=== PATIENT | male | born 1960 | race Hispanic/Latino ===

== ENCOUNTER 2020-02-28 09:25 | Inpatient (IN) | payer SELFPAY ==
[~2020-02-28] VITALS: Ht 172.7 cm; Wt 65.8 kg
[2020-02-28] MEDS ORDERED: CEFTRIAXONE SOD 1 GM/NS 50 ML 50 ML IV ONE (10:00)
[2020-02-28 10:04] LABS: BASOPHILS % 0.5 % (0.0-1.0); EOSINOPHILS % 0.5 % (0.0-6.0); HEMATOCRIT 43.1 % (38.2-49.6); HEMOGLOBIN 14.9 g/dL (14.0-18.0); LYMPHOCYTES # (AUTO) 1.1 (1.0-3.2); LYMPHOCYTES % 17.1 % (18.0-39.1); MEAN CORPUSCULAR HEMOGLOBIN 30.2 pg (28-32); MEAN CORPUSCULAR HGB CONC 34.6 g/dL (31-35); MEAN CORPUSCULAR VOLUME 87.4 fL (81-99); MONOCYTES # (AUTO) 0.7 (0.2-0.8); MONOCYTES % 11.8 % (4.4-11.3); NEUTROPHILS # (AUTO) 4.3 (2.1-6.9); NEUTROPHILS % 69.5 % (38.7-80.0); PLATELET COUNT 195 x10e3/uL (140-360); RED BLOOD COUNT 4.93 x10e6/uL (4.3-5.7); RED CELL DISTRIBUTION WIDTH 11.9 % (11.7-14.4)
[2020-02-28] MEDS ORDERED: AZITHROMYCIN 500MG/NS 250 ML 250 ML IV ONE (10:30)
[2020-02-28 10:46] LABS: ALANINE AMINOTRANSFERASE 42 IU/L (0-55); ALBUMIN 3.2 g/dL (3.5-5.0); ALBUMIN/GLOBULIN RATIO 0.6 (0.8-2.0); ALKALINE PHOSPHATASE 101 IU/L (40-150); ANION GAP 18.1 mmol/L (8-16); BLOOD UREA NITROGEN 8 mg/dL (7-26); BUN/CREATININE RATIO 11 (6-25); CALCIUM 9.1 mg/dL (8.4-10.2); CARBON DIOXIDE 22 mmol/L (22-29); CHLORIDE 96 mmol/L (98-107); CREATINE KINASE 21 IU/L (30-200); CREATININE, SERUM 0.73 mg/dL (0.72-1.25); EST GLOMERULAR FILTRATION RATE > 60 ML/MIN (60-); GLUCOSE 224 mg/dL (74-118); POTASSIUM 3.1 mmol/L (3.5-5.1); SODIUM 133 mmol/L (136-145)
--- NOTE | 2020-02-28 10:50 | NUR ---
COVID SWAB DONE
--- NOTE | 2020-02-28 10:59 | Emergency Department Note ---
History of Present Illnes History of Present Illness Chief Complaint: COVID PUI History of Present Illness This is a 59 year old male arrives to the ED with complaints of cough, fever and shortness of breath Chief Complaint Comment STATES HE FELT FEVERISH AT HOME BUT HAS NOT CHECKED HIS OWN TEMP TOOK TYLENOL YESTERDAY BUT NOT TODAY C/O DIFFICULTY BREATHING DENIES MUSCLES ACHES/CHILLS DENIES SORE THROAT/PERSON C/O N/V STATES HE HAD 1 DAY OF DIARRHEA STATES HE HAS LACK OF APPETITE LAST MEAL 3 DAYS AGO . Historian: Patient Arrival Mode: Car Severity: moderate Onset quality: gradual Duration (how long): day(s) Timing of current episode: intermittent Progression: worsening Chronicity: new Past Medical/Family History Physician Review I have reviewed the patient's past medical and family history. Any updates have been documented here. Past Medical History Recent Fever: Yes Clinical Suspicion of Infectio: Yes New/Unexplained Change in Ment: No Past Medical History: Diabetes Past Surgical History: None Social History Smoking Cessation: Unknown if ever smoked Counseling Performed: No Alcohol Use: Occasional Any Illegal Drug Use: No TB Exposure/Symptoms: No Physically hurt or threatened: No Other Last Tetanus: UTD Last Flu: N Last Pneumovax: N Review of Systems Review of Systems Constitutional: Reports as per HPI, Reports chills, Reports fever EENTM: Reports no symptoms Cardiovascular: Reports no symptoms Respiratory: Reports as per HPI, Reports cough, Reports pain on inspiration Gastrointestinal: Reports no symptoms Genitourinary: Reports no symptoms Musculoskeletal: Reports no symptoms Integumentary: Reports no symptoms Neurological: Reports no symptoms Psychological: Reports no symptoms Endocrine: Reports no symptoms Hematological/Lymphatic: Reports no symptoms Physical Exam Related Data Allergies: Coded Allergies: No Known Allergies (Unverified , 02/28/20) Triage Vital Signs Vital Signs Date Time Temp Pulse Resp B/P (MAP) Pulse Ox O2 Delivery O2 Flow Rate FiO2 02/28/20 09:32 97.9 80 24 101/76 92 Vital signs reviewed: Yes Physical Exam CONSTITUTIONAL Constitutional: Present well-developed, Present ill appearing HENT HENT: Present normocephalic, Present atraumatic, Present oropharynx clear/moist, Present nose normal HENT L/R: Present left ext ear normal, Present right ext ear normal EYES Eyes: Reports PERRL, Reports conjunctivae normal NECK Neck: Present ROM normal PULMONARY Pulmonary: Present effort normal, Present respiratory distress CARDIOVASCULAR Cardiovascular: Present regular rhythm, Present heart sounds normal, Present capillary refill normal, Present normal rate GASTROINTESTINAL Abdominal: Present soft, Present nontender, Present bowel sounds normal GENITOURINARY Genitourinary: Present exam deferred SKIN Skin: Present warm, Present dry MUSCULOSKELETAL Musculoskeletal: Present ROM normal NEUROLOGICAL Neurological: Present alert, Present oriented x 3, Present no gross motor or sensory deficits PSYCHOLOGICAL Psychological: Present mood/affect normal, Present judgement normal Results Laboratory Result Diagram: 02/28/20 0948 Laboratory Laboratory Tests Test 02/28/20 10:17 02/28/20 09:48 White Blood Count 6.20 x10e3/uL (4.8-10.8) Red Blood Count 4.93 x10e6/uL (4.3-5.7) Hemoglobin 14.9 g/dL (14.0-18.0) Hematocrit 43.1 % (38.2-49.6) Mean Corpuscular Volume 87.4 fL (81-99) Mean Corpuscular Hemoglobin 30.2 pg (28-32) Mean Corpuscular Hemoglobin Concent 34.6 g/dL (31-35) Red Cell Distribution Width 11.9 % (11.7-14.4) Platelet Count 195 x10e3/uL (140-360) Neutrophils (%) (Auto) 69.5 % (38.7-80.0) Lymphocytes (%) (Auto) 17.1 % (18.0-39.1) Monocytes (%) (Auto) 11.8 % (4.4-11.3) Eosinophils (%) (Auto) 0.5 % (0.0-6.0) Basophils (%) (Auto) 0.5 % (0.0-1.0) Neutrophils # (Auto) 4.3 (2.1-6.9) Lymphocytes # (Auto) 1.1 (1.0-3.2) Monocytes # (Auto) 0.7 (0.2-0.8) Eosinophils # (Auto) 0.0 (0.0-0.4) Basophils # (Auto) 0.0 (0.0-0.1) Absolute Immature Granulocyte (auto 0.04 x10e3/uL (0-0.1) Lactic Acid Level 3.3 mmol/L (0.5-2.0) Lab results reviewed: Yes Laboratory comments Laboratory Tests Test 02/28/20 10:17 02/28/20 09:50 02/28/20 09:48 Urine Color [place] (YELLOW) Urine Clarity Sl cloudy (CLEAR) Urine pH 6 (5 - 7) Urine Specific [place] 1.025 (1.010-1.025) Urine Protein 2+ (NEGATIVE) Urine Glucose (UA) Negative (NEGATIVE) Urine Ketones Trace (NEGATIVE) Urine Blood Negative (NEGATIVE) Urine Nitrite Negative (NEGATIVE) Urine Bilirubin Moderate (NEGATIVE) Urine Urobilinogen 4 mg/dL (0.2 - 1) Urine Leukocyte Esterase Negative (NEGATIVE) Urine RBC 0-5 /HPF (0-5) Urine WBC 0-5 /HPF (0-5) Urine Epithelial Cells Few /LPF (NONE) Urine Bacteria Moderate /HPF (NONE) White Blood Count 6.20 x10e3/uL (4.8-10.8) Red Blood Count 4.93 x10e6/uL (4.3-5.7) Hemoglobin 14.9 g/dL (14.0-18.0) Hematocrit 43.1 % (38.2-49.6) Mean Corpuscular Volume 87.4 fL (81-99) Mean Corpuscular Hemoglobin 30.2 pg (28-32) Mean Corpuscular Hemoglobin Concent 34.6 g/dL (31-35) Red Cell Distribution Width 11.9 % (11.7-14.4) Platelet Count 195 x10e3/uL (140-360) Neutrophils (%) (Auto) 69.5 % (38.7-80.0) Lymphocytes (%) (Auto) 17.1 % (18.0-39.1) Monocytes (%) (Auto) 11.8 % (4.4-11.3) Eosinophils (%) (Auto) 0.5 % (0.0-6.0) Basophils (%) (Auto) 0.5 % (0.0-1.0) Neutrophils # (Auto) 4.3 (2.1-6.9) Lymphocytes # (Auto) 1.1 (1.0-3.2) Monocytes # (Auto) 0.7 (0.2-0.8) Eosinophils # (Auto) 0.0 (0.0-0.4) Basophils # (Auto) 0.0 (0.0-0.1) Absolute Immature Granulocyte (auto 0.04 x10e3/uL (0-0.1) Sodium Level 133 mmol/L (136-145) Potassium Level 3.1 mmol/L (3.5-5.1) Chloride Level 96 mmol/L (98-107) Carbon Dioxide Level 22 mmol/L (22-29) Anion Gap 18.1 mmol/L (8-16) Blood Urea Nitrogen 8 mg/dL (7-26) Creatinine 0.73 mg/dL (0.72-1.25) Estimat Glomerular Filtration Rate > 60 ML/MIN (60-) BUN/Creatinine Ratio 11 (6-25) Glucose Level 224 mg/dL (74-118) Lactic Acid Level 3.3 mmol/L (0.5-2.0) Calcium Level 9.1 mg/dL (8.4-10.2) Total Bilirubin 0.9 mg/dL (0.2-1.2) Aspartate Amino Transf (AST/SGOT) 69 IU/L (5-34) Alanine Aminotransferase (ALT/SGPT) 42 IU/L (0-55) Alkaline Phosphatase 101 IU/L (40-150) Creatine Kinase 21 IU/L (30-200) Creatine Kinase MB 0.20 ng/mL (0-5.0) Troponin I 0.006 ng/mL (0-0.300) Total Protein 8.4 g/dL (6.5-8.1) Albumin 3.2 g/dL (3.5-5.0) Globulin 5.2 g/dL (2.3-3.5) Albumin/Globulin Ratio 0.6 (0.8-2.0) Imaging Imaging results reviewed: Yes Impressions IMPRESSION: Apparent airspace opacities in both lower lung zones may represent pneumonia. Procedures 12 Lead ECG Interpretation ECG Interpretation : ECG: ECG 1 Special Needs Caregiver: Interpreted by ED physician Prior ECG tracings: reviewed Rhythm: sinus rhythm QRS axis: normal ST segments normal: Yes T waves normal: Yes Clinical Impression: normal ECG Critical Care Time Total Critical Care Time (min): 35 Critical care time exclusive o: separately billable procedures Critcal care necessary due to: respiratory failure (patient arrived hypoxic acute respiratory failure, required immediate intervention supplemental O2) Assessment & Plan Medical Decision Making MDM 59 yo M arrived to the ED with complaints of cough shortness of breath, no be t achypneic and hypoxic on arrival to the ER. High suspicion for covid 19. Patient admitted, ceftriaxone and Zithromax given the ED, pulmonary infectious disease consulted. Assessment & Plan Final Impression: (1) Acute respiratory failure (2) Acute respiratory disease due to COVID-19 virus Depart Disposition: ADMITTED Last Vital Signs Date Time Temp Pulse Resp B/P (MAP) Pulse Ox O2 Delivery O2 Flow Rate FiO2 02/28/20 10:43 73 32 132/80 100 02/28/20 09:32 97.9 Medications in the ED Ceftriaxone Sodium 50 ml @ 100 mls/hr ONCE ONCE IV Last administered on 02/28/20at 10:23; Admin Dose 100 MLS/HR; Start 02/28/20 at 10:00; Stop 02/28/20 at 10:29; Status DC Azithromycin 250 ml @ 200 mls/hr ONCE ONCE IV ; Start 02/28/20 at 10:30; Stop 02/28/20 at 11:44 RENO GRAHAM, Feb 28, 2020 10:59
--- NOTE | 2020-02-28 11:29 | NUR ---
3 rd call to pharmacy for azithomax iv.
--- NOTE | 2020-02-28 11:33 | Diagnostic Imaging Report ---
TECHNIQUE: Frontal view of the chest. INDICATION: 59-year-old man with fever. COMPARISON: None. FINDINGS: LINES/TUBES: None. LUNGS: The lungs are well inflated. Apparent patchy airspace opacities in both lower lung zones. PLEURA: No pneumothorax or significant pleural effusion. HEART AND MEDIASTINUM: The cardiomediastinal silhouette is within normal limits. SOFT TISSUES AND BONES: Unremarkable. IMPRESSION: Apparent airspace opacities in both lower lung zones may represent pneumonia. Signed by: Renny Zelaya MD on 02/28/2020 11:29 AM
--- NOTE | 2020-02-28 11:40 | NUR ---
called lab to see where urine result is and why not checked in yet?
[2020-02-28 11:57] LABS: CLARITY,URINE SL CLOUDY (CLEAR); COLOR,URINE ORANGE (YELLOW)
[2020-02-28 11:58] LABS: BILIRUBIN,URINE MODERATE (NEGATIVE); KETONES,URINE TRACE (NEGATIVE); LEUKOCYTE ESTERASE ,URINE NEGATIVE (NEGATIVE); NITRITE,URINE NEGATIVE (NEGATIVE); PROTEIN,URINE DIPSTICK 2+ (NEGATIVE); URINE UROBILINOGEN 4 mg/dL (0.2 - 1)
[2020-02-28 12:18] LABS: BACTERIA,URINE MODERATE /HPF; EPITHELIAL CELLS,URINE FEW /LPF; RBC,URINE 0-5 /HPF (0-5); WBC,URINE (MAN) 0-5 /HPF (0-5)
--- NOTE | 2020-02-28 15:00 | NUR ---
CALLED FOR TELE BOX
[2020-02-28] MEDS ORDERED: ONDANSETRON HCL INJ 2MG/ML 2ML 2 MG/ML VIAL IV PRN (16:15)
[2020-02-28] MEDS ORDERED: SOD CHL 0.45%/POT CHL 20MEQ 1,000 ML IV ONE (16:30)
[2020-02-28] MEDS ORDERED: POTASSIUM CHLORIDE 20 MEQ TAB CR PO NR ×2 (16:30→19:00)
[2020-02-28 17:39] VITALS: BP 132/83
[2020-02-28] MEDS: ENOXAPARIN SOD INJ 40 MG/0.4 ML SYR SC SCH (18:10)
[2020-02-28] MEDS: ASCORBIC ACID 500 MG TAB PO SCH (18:10)
--- NOTE | 2020-02-28 18:30 | NUR ---
Patient arrived from ER at 1745. Patient is AOx3. Patient is on 2L NC with oxygen saturations at 97%. Patient was able to give me a somewhat history, does not understand all Argentine nor is he able to communicate all Argentine. 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 Patient has a patent, c/d/i IV in the left forearm with fluids running at 100 ml/hr. Patient was seen by Dr. Cody Reis upon arrival and he did order some new medications, which were given. No other orders at this time.
--- NOTE | 2020-02-28 19:51 | Consultation ---
DATE OF CONSULTATION: Pulmonary Critical Care Consultation CHIEF COMPLAINT: Fever, abdominal pain, and decreased appetite. HISTORY OF PRESENT ILLNESS: The patient is a 59-year-old man. He denies any prior cardiopulmonary history. He notes feeling ill for the past 3 days. He has some cough and some fever. He also notes some abdominal pain and decreased appetite. He says he vomits sometimes after he eats. PAST SURGICAL HISTORY: Noncontributory. PAST MEDICAL HISTORY: 1. No prior history of diabetes. 2. No prior history of respiratory problems. SOCIAL HISTORY: The patient has never been a smoker or drinker. FAMILY HISTORY: Family history is noncontributory. REVIEW OF SYSTEMS: He has some fevers. He has no headache. He has some cough. He reports some mild dyspnea. There is no chest pain. He has some abdominal pain. There is some vomiting after eating. He has no diarrhea. He has no leg edema. PHYSICAL EXAMINATION: VITAL SIGNS: The blood pressure is 119/78, saturation is 100%, and his respiratory rate is 26. HEENT: Shows no facial swelling or erythema. CARDIAC: Reveals regular rate and rhythm. Normal S1 and S2. There are no murmurs or rubs. LUNGS: Auscultation of lungs reveals clear breath sounds bilaterally. There is no wheezing. ABDOMEN: Soft and nontender. There is no rebound or guarding. EXTREMITIES: Shows no leg edema or calf tenderness. There is no cyanosis or clubbing. SKIN: Shows no rashes. NEUROLOGICAL: Shows no focal abnormalities. LABORATORY DATA: Lactic acid is 3.3 and the BUN to creatinine ratio is 8 to 0.73. The sodium is 133 and the potassium is 3.1. AST is 69 and the albumin is 3.2. RADIOGRAPHIC DATA: Chest x-ray shows bilateral airspace opacities. IMPRESSION: 1. Viral pneumonia and COVID-19 infection. 2. Hypokalemia. 3. Dehydration. PLAN: 1. Judicious use of IV fluids. 2. Replace potassium. 3. Azithromycin and Rocephin. 4. Oxygen. 5. Tylenol. Cliff Reis MD [facility]/ELL /[id number]
[2020-02-28 20:00] VITALS: BP 124/87
--- NOTE | 2020-02-28 20:41 | Consultation ---
DATE OF CONSULTATION: HISTORY OF PRESENT ILLNESS: A 59-year-old [place] male, comes into the emergency room with shortness of breath and cough. The patient has been feeling feverish, not feeling well, started for one day short of breath, body aches, comes in to emergency room, had one day also of diarrhea, not feeling well, not eating well, comes into the emergency room. The patient is being seen in the emergency room since COVID-19 test has been ordered. PAST MEDICAL HISTORY: Denies. PAST SURGICAL HISTORY: Denies. ALLERGIES: NKA. SOCIAL HISTORY: There is no smoking, drug abuse, or alcohol abuse. LABORATORY DATA: White count 6.2, hemoglobin 14.9. His COVID-19 is pending. Sodium 133, potassium 3.1, and creatinine 0.73. Lactic acid 3.3 and glucose 224. PAST MEDICAL HISTORY: Diabetes mellitus. MEDICATIONS: The patient is currently in the ER. IMAGING: Chest x-ray was done showed apparent air opacity in both lower zone. PHYSICAL EXAMINATION: GENERAL: He is currently alert and oriented. VITAL SIGNS: Stable, afebrile. Temperature 97.9, heart rate 80, respirations 24, and O2 saturation 92. HEENT: Normocephalic. NECK: Supple. CHEST: Free crackles bilateral. COR: S1-S2. No murmurs. ABDOMEN: Soft. Bowel sounds present. No tenderness. EXTREMITIES: No edema. IMPRESSION: 1. Concerned about coronavirus disease-19. 2. Atypical pneumonia. 3. Diabetes mellitus. Agree with Rocephin, agree with azithromycin. If PCR positive, we will start Lovenox. We will also put him on O2 as needed. Gentle hydration as needed. Recheck CBC. Recheck Chem panel. Diabetic control. Accu-Chek. We will follow. MD ERWIN Banegas/[facility]L /[id number]
[2020-02-28 21:00] VITALS: BP 124/87
[2020-02-29] VITALS (8 sets, daily range): BP systolic 104–135; BP diastolic 68–94
[2020-02-29] MEDS: ZOLPIDEM TARTRATE 5 MG TAB PO PRN ×2 (00:47→23:00)
[2020-02-29] MEDS: ACETAMINOPHEN 325 MG TAB PO PRN ×2 (00:47→15:49)
[2020-02-29 05:07] LABS: BASOPHILS % 0.4 % (0.0-1.0); EOSINOPHILS % 0.6 % (0.0-6.0); HEMOGLOBIN 13.6 g/dL (14.0-18.0); LYMPHOCYTES # (AUTO) 1.5 (1.0-3.2); LYMPHOCYTES % 20.6 % (18.0-39.1); MEAN CORPUSCULAR HEMOGLOBIN 29.7 pg (28-32); MEAN CORPUSCULAR VOLUME 87.3 fL (81-99); MONOCYTES # (AUTO) 0.9 (0.2-0.8); MONOCYTES % 12.7 % (4.4-11.3); NEUTROPHILS # (AUTO) 4.6 (2.1-6.9); NEUTROPHILS % 65.1 % (38.7-80.0); PLATELET COUNT 210 x10e3/uL (140-360); RED BLOOD COUNT 4.58 x10e6/uL (4.3-5.7); RED CELL DISTRIBUTION WIDTH 11.9 % (11.7-14.4)
[2020-02-29 05:35] LABS: MAGNESIUM 1.6 MG/DL (1.3-2.1); PHOSPHORUS 3.1 MG/DL (2.3-4.7)
[2020-02-29 05:45] LABS: THYROID STIMULATING HORMONE 2.338 uIU/mL (0.350-4.940)
[2020-02-29 06:00] LABS: ALANINE AMINOTRANSFERASE 38 IU/L (0-55); ALBUMIN 2.6 g/dL (3.5-5.0); ALBUMIN/GLOBULIN RATIO 0.5 (0.8-2.0); ALKALINE PHOSPHATASE 80 IU/L (40-150); BLOOD UREA NITROGEN 9 mg/dL (7-26); BUN/CREATININE RATIO 15 (6-25); CALCIUM 8.3 mg/dL (8.4-10.2); CARBON DIOXIDE 21 mmol/L (22-29); CHLORIDE 100 mmol/L (98-107); CREATININE, SERUM 0.62 mg/dL (0.72-1.25); EST GLOMERULAR FILTRATION RATE > 60 ML/MIN (60-); GLUCOSE 122 mg/dL (74-118); SODIUM 134 mmol/L (136-145)
[2020-02-29 08:26] LABS: EOSINOPHILS % (MANUAL) 1 % (0-7); LYMPHOCYTES % (MANUAL) 20 % (19-48); MONOCYTES % (MANUAL) 7 % (3.4-9.0); NEUTROPHILS % (MANUAL) 72 % (40-74); PLATELET ESTIMATE ADEQUATE; PLATELET MORPHOLOGY COMMENT NORMAL; RBC MORPHOLOGY COMMENT NORMAL
[2020-02-29] MEDS: ZINC SULFATE 220 MG CAP PO SCH (08:41)
[2020-02-29] MEDS: ASCORBIC ACID 500 MG TAB PO SCH ×2 (08:41→15:49)
--- NOTE | 2020-02-29 08:43 | NUR ---
GAVE PACKET OF INFORMATION WITH COMMUNITY [employer] FOR ASSISTANCE WITH LOW TO NO INCOME TO PATIENT. RESOURCES THAT PATIENT MAY BE ABLE TO FOLLOW UP UPON DISCHARGE. PT EDUCATED ON EACH RESOURCE AND UNDERSTANDING HOW TO FOLLOW UP TO SEE IF QUALIFIED FOR EACH RESOURCE.
[2020-02-29] MEDS ORDERED: METFORMIN HCL1000 MG PO (09:23)
[2020-02-29] MEDS ORDERED: MAGNESIUM SULFATE 2GM/50ML 50 ML IV ONE (09:30)
[2020-02-29] MEDS ORDERED: GUAIFENESIN/CODEINE 10 ML CUP PO PRN (09:30)
[2020-02-29] MEDS: CEFTRIAXONE SOD 2 GM/NS 100 ML 100 ML IV SCH (15:49)
[2020-02-29] MEDS: ENOXAPARIN SOD INJ 40 MG/0.4 ML SYR SC SCH (15:49)
[2020-02-29] MEDS ORDERED: SODIUM CHLORIDE 0.9% 1000ML 1,000 ML IV ONE (17:00)
[2020-02-29] MEDS: FAMOTIDINE 20 MG/2 ML VIAL IV SCH (17:28)
--- NOTE | 2020-02-29 18:16 | Progress Note ---
DATE: SUBJECTIVE: The patient still complains of some cough and some fevers. He has mild headache. PHYSICAL EXAMINATION: VITAL SIGNS: Blood pressure is 135/81 and saturation is 93% on 1 L. The temperature is 100.3. HEENT: Shows no facial swelling or erythema. CARDIAC: Reveals regular rate and rhythm with normal S1 and S2. LUNGS: Auscultation of lungs reveals clear breath sounds bilaterally. There is no wheezing. ABDOMEN: Soft and nontender. There is no rebound or guarding. EXTREMITIES: Shows no leg edema or calf tenderness. There is no cyanosis or clubbing. SKIN: Shows no rashes. LABORATORY DATA: CBC is within normal limits. BUN to creatinine ratio is normal. IMPRESSION: 1. Viral pneumonia and COVID-19 infection. 2. Hypokalemia. 3. Dehydration. PLAN: 1. Judicious use of IV fluids. 2. Azithromycin and Rocephin. 3. Cough suppressant. 4. Oxygen. Cliff Reis MD [facility] /[id number]
--- NOTE | 2020-02-29 19:36 | Progress Note ---
DATE: 02/29/2020 SUBJECTIVE: The patient continues to have cough, occasional chills. Mild abdominal pain. Decreased appetite, shortness of breath, mild dyspnea, phlegm, mild headache. OBJECTIVE: VITAL SIGNS: Temperature 98.3, heart rate 69, respirations 18, and oxygen saturation 92%. GENERAL: Supine in bed. Awake, alert. LUNGS: Clear with diminished bases. Oxygen at 1 L/minute via nasal cannula this morning, however, the patient states tubing hurts his ears and he removed it. Respirations are even and nonlabored on room air. HEENT: EOMI. NECK: Supple. CARDIOVASCULAR: Regular rate and rhythm. No murmur. ABDOMEN: Bowel sounds positive. Soft, mildly tender to gentle palpation. EXTREMITIES: No pitting edema. No clubbing, cyanosis, or marked swelling. NEUROLOGICAL: GCS 15. Nonfocal. LABORATORY DATA: WBC 7.09, hemoglobin 13.6, hematocrit 40, and platelets 210. Sodium 134, potassium 4.0, chloride 100, CO2 of 21, anion gap 17, BUN 9, creatinine 0.62, estimated GFR greater than 60, glucose 122. Hemoglobin A1c 6.8%. Calcium 8.3, phosphorus 3.1, magnesium 1.6, total bilirubin 1, AST 56, ALT 38, alkaline phosphatase 80, total protein 7.5, albumin 2.6. TSH 2.338. No growth from blood cultures. Preliminary urine culture shows re-intubation required. No new Radiology studies. ASSESSMENT AND PLAN: 1. Viral community-acquired pneumonia due to COVID-19. Continue with p.r.n. Tylenol, Lovenox, azithromycin, and Rocephin was added today by Dr. Carrillo. Continue oxygen p.r.n., however, currently the patient has good oxygen saturation without oxygen. Encourage p.o. fluids. Dr. Reis saw and evaluated the patient while I was in the room. We will order IV fluids. 2. Controlled type 2 diabetes mellitus. Yesterday's glucose elevated, but today serum glucose 122 and hemoglobin A1c is less than 7%, is 6.8%. Continue to monitor fingerstick blood glucose levels. 3. Acute hypomagnesemia. Magnesium level 1.6. We will order 2 g of magnesium sulfate. 4. Dehydration. Encourage p.o. fluids. Continue IV fluids. 5. Mild acute hyponatremia. Sodium level 134. Give normal saline as IV fluids. 6. Mild transaminitis with AST 56, improved from yesterday. 7. Prophylaxis. Pepcid and Lovenox. Dictated by Jaun Menezes, REAL ESTATE ASSISTANT Saran Schmitz MD [facility] /[id number]
--- NOTE | 2020-02-29 20:17 | Progress Note ---
DATE: 02/29/2020 SUBJECTIVE: Mr. Omalley is feeling better. He is not on any oxygen. He is still running fever. PHYSICAL EXAMINATION: GENERAL: He is currently alert and oriented, does not seem acute distress. VITAL SIGNS: Stable, currently afebrile. HEENT: He is not icteric. NECK: Supple. CHEST: Clear. IMAGING: His chest x-ray showed opacities. IMPRESSION: Pneumonia. Continue with Rocephin. Continue azithromycin. Continue Lovenox as ordered. Probably can discharge home tomorrow if he continued to improve. Continue oxygen as needed and we will follow. MD ERWIN Banegas/ANN MARIE /[id number]
--- NOTE | 2020-02-29 21:32 | History and Physical ---
CONSULTING PHYSICIANS: 1. Dr. Cliff Reis with Pulmonology. 2. Dr. Alesia Carrillo with Infectious Disease. No PCP listed. CHIEF COMPLAINT: Cough and fever. HISTORY OF PRESENT ILLNESS: The patient is a 59-year-old male who has been ill for about the last three days. He denies having any known sick contacts. However, he came into the emergency department with fever, some shortness of breath, cough with phlegm, mild dyspnea, abdominal pain, poor appetite. He was tested for COVID-19, which came back positive. He denies any recent travel. PAST MEDICAL HISTORY: Type 2 diabetes mellitus. PAST SURGICAL HISTORY: None. FAMILY HISTORY: None. SOCIAL HISTORY: Denies tobacco, alcohol, or illicit drugs. ALLERGIES: NO KNOWN ALLERGIES. REVIEW OF SYSTEMS: A 14-point review of systems completed. He is a known diabetic. He has no complaints of headache, diarrhea, or difficulty urinating. He has shortness of breath, cough, phlegm, mild dyspnea, abdominal pain, poor appetite, vomiting after eating. PHYSICAL EXAMINATION: VITAL SIGNS: Temperature 101.1, which is T-max, heart rate 81, blood pressure 132/83, respirations 18, and oxygen saturation 97%. Height 5 feet 8 inches, weight 150 pounds, BMI 22.8. GENERAL: The patient is lying supine in bed. LUNGS: Generally clear with diminished bases. Oxygen at 1 L via nasal cannula. HEENT: EOMI. NECK: Supple. CARDIOVASCULAR: Regular rate and rhythm. No murmur. ABDOMEN: Bowel sounds positive. Soft, tender to gentle palpation. EXTREMITIES: Without pitting edema. No clubbing, cyanosis, or marked swelling. No sign or symptom of DVT. NEUROLOGIC: GCS 15. Nonfocal. LABORATORY DATA: Sodium 133, potassium 3.1, chloride 96, CO2 of 22, BUN 8, creatinine 0.73, glucose 224, estimated GFR greater than 60. Calcium 9.1, AST 69, ALT 42, alkaline phosphatase 101. Creatine kinase 21, CK-MB 0.2, troponin I 0.006. Total protein 8.4, albumin 3.2. Urinalysis shows orange urine, slightly cloudy, 2+ protein, trace amount of ketones, moderate amount of bilirubin, negative for leukocyte esterase, negative for nitrite, moderate amount of urine bacteria. 02/27 coronavirus PCR detected. Blood cultures x2 showed no growth after 24 hours. Urine culture collected. Awaiting preliminary results. RADIOLOGY: Chest x-ray was done showing airspace opacities in both lower lung zones that may represent pneumonia. ASSESSMENT AND PLAN: 1. Viral community-acquired pneumonia due to COVID-19. Continue oxygen and wean as tolerated. Azithromycin/Rocephin, Lovenox, Tylenol. Encourage IV fluids as needed. 2. Uncontrolled type 2 diabetes mellitus with hyperglycemia, serum glucose 224. Monitor fingerstick blood glucose. The patient takes metformin at home and refuses insulin. 3. Acute hypokalemia. Potassium level 3.1, repleted by Dr. Reis. 4. Dehydration. Continue IV fluids as needed. 5. Mild acute hyponatremia. Sodium level 133. We will use normal saline with 20 mEq potassium chloride, IV fluids. 6. Transaminitis with AST of 69. Monitor LFTs. 7. Prophylaxis Lovenox, Pepcid. H and P time spent 60 minutes. Billing code [id number]. Dictated by Jaun Menezes NP MD JJ GusmanP/[facility] /[id number]
[2020-02-29] MEDS: GUAIFENESIN/CODEINE 10 ML CUP PO PRN (23:00)
[2020-03-01 05:45] LABS: BASOPHILS % 0.5 % (0.0-1.0); EOSINOPHILS # (AUTO) 0.1 (0.0-0.4); HEMATOCRIT 42.3 % (38.2-49.6); HEMOGLOBIN 14.6 g/dL (14.0-18.0); LYMPHOCYTES # (AUTO) 1.3 (1.0-3.2); LYMPHOCYTES % 16.3 % (18.0-39.1); MEAN CORPUSCULAR HEMOGLOBIN 30.8 pg (28-32); MEAN CORPUSCULAR HGB CONC 34.5 g/dL (31-35); MEAN CORPUSCULAR VOLUME 89.2 fL (81-99); MONOCYTES # (AUTO) 1.1 (0.2-0.8); MONOCYTES % 14.2 % (4.4-11.3); NEUTROPHILS # (AUTO) 5.2 (2.1-6.9); NEUTROPHILS % 67.5 % (38.7-80.0); PLATELET COUNT 212 x10e3/uL (140-360); RED BLOOD COUNT 4.74 x10e6/uL (4.3-5.7); RED CELL DISTRIBUTION WIDTH 11.7 % (11.7-14.4)
[2020-03-01 06:00] LABS: ALANINE AMINOTRANSFERASE 29 IU/L (0-55); ALBUMIN 2.4 g/dL (3.5-5.0); ALBUMIN/GLOBULIN RATIO 0.5 (0.8-2.0); ALKALINE PHOSPHATASE 75 IU/L (40-150); ANION GAP 16.7 mmol/L (8-16); BLOOD UREA NITROGEN 8 mg/dL (7-26); BUN/CREATININE RATIO 14 (6-25); CALCIUM 8.6 mg/dL (8.4-10.2); CARBON DIOXIDE 20 mmol/L (22-29); CHLORIDE 100 mmol/L (98-107); CREATININE, SERUM 0.57 mg/dL (0.72-1.25); EST GLOMERULAR FILTRATION RATE > 60 ML/MIN (60-); GLUCOSE 94 mg/dL (74-118); MAGNESIUM 1.8 MG/DL (1.3-2.1); POTASSIUM 3.7 mmol/L (3.5-5.1); SODIUM 133 mmol/L (136-145)
--- NOTE | 2020-03-01 07:00 | NUR ---
Received report from off going night nurse. Patient in stable condition, no s/s of distress noted. Telemetry applied. Bed in lowest position and locked. Call light within reach.
[2020-03-01 08:28] VITALS: BP 112/70
[2020-03-01] MEDS: ASCORBIC ACID 500 MG TAB PO SCH ×2 (09:26→16:36)
[2020-03-01] MEDS: FAMOTIDINE 20 MG/2 ML VIAL IV SCH ×2 (09:26→16:36)
[2020-03-01] MEDS: ZINC SULFATE 220 MG CAP PO SCH (09:26)
[2020-03-01] MEDS: AZITHROMYCIN 500MG/NS 250 ML 250 ML IV SCH (11:07)
[2020-03-01] MEDS: GUAIFENESIN/CODEINE 10 ML CUP PO PRN (11:08)
--- NOTE | 2020-03-01 11:49 | Progress Note ---
DATE: SUBJECTIVE: The patient is seen and evaluated. Available labs and notes reviewed. Discussed with Dr. Carrillo. Discussed with staff. Please refer to chart for more information. The patient is seen with the nurse in the room. REVIEW OF SYSTEMS: The patient has cough, shortness of breath, weak. He says that he has a good appetite, but it seems like he ate about 40% of his breakfast. He cannot eat on one sitting. He needs to take a breath to breathe while he is eating. No diarrhea. No edema. Weak, but he states that he is okay overall. PHYSICAL EXAMINATION: VITAL SIGNS: Temperature of 100.3 with a max of 102.6 yesterday at 4 o'clock in the afternoon, pulse is 77, respirations 16, and blood pressure 132/80. GENERAL: Alert and oriented, seems weak, seems to be slightly short of breath, but no acute distress, on O2 nasal cannula. The patient is on 2 to 3 L of oxygen through nasal cannula. CV: S1 and S2. CHEST: Coarse bilateral. Decreased breath sounds. ABDOMEN: Soft. No distention. No tenderness. HEENT: Moist. No pallor. No JVD. EXTREMITIES: Moves all. No significant edema. MEDICATIONS: The patient is on from ID point of view, vitamin C, zinc sulfate, Rocephin, and Lovenox 40 mg subcutaneous daily. LABORATORY STUDIES: White count of 7.65, hemoglobin 14.6, and platelet 212. Sodium 133, potassium 3.7, and creatinine 0.57. Serology; coronavirus PCR is positive on 02/28/2020. MICROBIOLOGY: Blood culture negative 24 hours on 02/28/2020. Urine culture 02/28/2020, showed lactobacillus and diphtheroids. IMAGING: Chest x-ray 02/28/2020, showed apparent airspace opacities in both lower lung zones, may represent pneumonia. ASSESSMENT AND PLAN: 1. Positive COVID-19 on 02/28/2020. 2. Bilateral pneumonia. 3. Cough. 4. Fever. 5. The patient remains on vitamin C, zinc sulfate, Rocephin, and Lovenox. We will add Zithromax. Monitor the patient's oxygen requirement and shortness of breath. Monitor the patient's cough. Monitor the patient clinically. Discussed with Dr. Carrillo. Please refer to chart for more information. MD KYLEE Banegas /[id number]
[2020-03-01 11:52] VITALS: BP 116/73
[2020-03-01] MEDS ORDERED: SODIUM CHLORIDE 0.9% 1000ML 1,000 ML IV ONE (12:45)
[2020-03-01] MEDS ORDERED: ALBUTEROL SULFATE HFA 8GM INHALATION AEROSOL INH PRN (12:45)
[2020-03-01] MEDS ORDERED: BENZONATATE 100 MG CAP PO PRN (13:00)
--- NOTE | 2020-03-01 13:45 | Progress Note ---
DATE: Pulmonary Critical Care Progress Note SUBJECTIVE: The patient still complains of fatigue. He has lack of energy. He still has some fever. He complains of some vomiting after eating. He also complains of cough. PHYSICAL EXAMINATION: VITAL SIGNS: The blood pressure is 116/73, saturation is 91%, pulse is 78. HEENT: No facial swelling or erythema. CARDIAC: Regular rate and rhythm with normal S1, S2. LUNGS: Auscultation of lungs reveals decreased breath sounds at the bases. There is no wheezing. ABDOMEN: Soft, nontender. There is no rebound or guarding. EXTREMITIES: No leg edema or calf tenderness. There is no cyanosis or clubbing. SKIN: No rashes. NEUROLOGICAL: No focal abnormalities. LABORATORY DATA: White blood cell count is 7.65 and hemoglobin is 14.6. The platelet count is 212. BUN to creatinine ratio is 8 to 0.57 and the albumin is 2.4. The sodium is 133 and CO2 is 20. IMPRESSION: 1. Viral pneumonia and coronavirus disease-19 infection. 2. Viral gastroenteritis. 3. Diabetes. 4. Hyponatremia. PLAN: 1. Repeat chest x-ray. 2. Additional IV fluids x1 L. 3. Continue cough suppressants. 4. Albuterol inhaler as needed. Cliff Reis MD [facility] /[id number]
[2020-03-01] MEDS: CEFTRIAXONE SOD 2 GM/NS 100 ML 100 ML IV SCH (14:16)
--- NOTE | 2020-03-01 14:37 | Diagnostic Imaging Report ---
EXAMINATION: CHEST SINGLE (PORTABLE) INDICATION: Cough COMPARISON: Chest radiograph 02/28/2020 FINDINGS: LINES/TUBES:None LUNGS:The lungs are moderately inflated. Unchanged bilateral multifocal airspace opacities. PLEURA:No pleural effusion or pneumothorax. MEDIASTINUM:The cardiomediastinal silhouette appears unchanged in size and shape. BONES/SOFT TISSUES:No acute osseous injury. ABDOMEN:No free air under the diaphragm. IMPRESSION: No significant interval change. Signed by: Wolf Bernardo MD on 03/01/2020 2:34 PM
[2020-03-01 15:55] VITALS: BP 134/78
[2020-03-01] MEDS: ENOXAPARIN SOD INJ 40 MG/0.4 ML SYR SC SCH (16:36)
[2020-03-01] MEDS: METFORMIN HCL 500 MG TAB PO SCH (18:27)
[2020-03-01 20:00] VITALS: BP 134/82
[2020-03-01 21:00] VITALS: BP 134/82
[2020-03-02 04:00] VITALS: BP 109/74
[2020-03-02 05:40] LABS: BASOPHILS % 0.5 % (0.0-1.0); EOSINOPHILS # (AUTO) 0.2 (0.0-0.4); HEMATOCRIT 38.9 % (38.2-49.6); HEMOGLOBIN 13.4 g/dL (14.0-18.0); LYMPHOCYTES # (AUTO) 1.1 (1.0-3.2); LYMPHOCYTES % 13.4 % (18.0-39.1); MEAN CORPUSCULAR HEMOGLOBIN 29.8 pg (28-32); MEAN CORPUSCULAR HGB CONC 34.4 g/dL (31-35); MEAN CORPUSCULAR VOLUME 86.6 fL (81-99); MONOCYTES % 11.8 % (4.4-11.3); NEUTROPHILS # (AUTO) 5.7 (2.1-6.9); NEUTROPHILS % 70.8 % (38.7-80.0); PLATELET COUNT 285 x10e3/uL (140-360); RED BLOOD COUNT 4.49 x10e6/uL (4.3-5.7); RED CELL DISTRIBUTION WIDTH 11.8 % (11.7-14.4)
[2020-03-02 05:55] LABS: ALANINE AMINOTRANSFERASE 27 IU/L (0-55); ALBUMIN 2.1 g/dL (3.5-5.0); ALBUMIN/GLOBULIN RATIO 0.4 (0.8-2.0); ALKALINE PHOSPHATASE 65 IU/L (40-150); ANION GAP 12.2 mmol/L (8-16); BLOOD UREA NITROGEN 7 mg/dL (7-26); BUN/CREATININE RATIO 14 (6-25); CALCIUM 8.3 mg/dL (8.4-10.2); CARBON DIOXIDE 23 mmol/L (22-29); CHLORIDE 102 mmol/L (98-107); EST GLOMERULAR FILTRATION RATE > 60 ML/MIN (60-); GLUCOSE 108 mg/dL (74-118); POTASSIUM 3.2 mmol/L (3.5-5.1); SODIUM 134 mmol/L (136-145)
[2020-03-02] MEDS ORDERED: ASCORBIC ACID500 MG PO (08:13)
[2020-03-02] MEDS ORDERED: ZINC SULFATE220 M1 PO (08:13)
[2020-03-02] MEDS ORDERED: Guaifenesin/Codeine PO (08:13)
[2020-03-02] MEDS ORDERED: VENTOLIN HFA18 GM INH (08:13)
[2020-03-02] MEDS ORDERED: POTASSIUM CHLORIDE 20 MEQ TAB CR PO ONE (08:30)
[2020-03-02] MEDS: METFORMIN HCL 500 MG TAB PO SCH ×2 (08:44→17:00)
[2020-03-02] MEDS: ZINC SULFATE 220 MG CAP PO SCH (08:44)
[2020-03-02] MEDS: ASCORBIC ACID 500 MG TAB PO SCH ×2 (08:44→17:00)
[2020-03-02] MEDS: FAMOTIDINE 20 MG/2 ML VIAL IV SCH ×2 (08:44→17:00)
[2020-03-02 10:41] VITALS: BP 109/74
[2020-03-02] MEDS: AZITHROMYCIN 500MG/NS 250 ML 250 ML IV SCH (11:22)
[2020-03-02 11:31] VITALS: BP 115/72
[2020-03-02] MEDS: CEFTRIAXONE SOD 2 GM/NS 100 ML 100 ML IV SCH (15:15)
[2020-03-02] MEDS ORDERED: ONDANSETRON HCL 4 MG ORAL DISINTEGRATING TAB PO PRN (15:15)
--- NOTE | 2020-03-02 15:30 | NUR ---
PT DISCHARGE PAPERWORK COMPLETE WITH PATIENT. PT GIVEN PRESCRIPTIONS AND CLEAR ON INSTRUCTIONS FOR ALL MEDS. PT VERBALIZED UNDERSTANDING OF DISCHARGE INSTRUCTIONS AND FOLLOW UP APPTS NEEDED. IV ACCESS REMOVED- BLEEDING CONTROLLED & DRESSING APPLIED. TELEMETRY BOX REMOVED FROM PATIENT, CLEANSED AND RETURNED. PT WAITING FOR TO ARRIVE WITH CLOTHES TO WEAR HOME. MATEO.
--- NOTE | 2020-03-02 16:09 | Progress Note ---
DATE: SUBJECTIVE: Mr. Omalley is feeling much better. He is still having cough. PHYSICAL EXAMINATION: GENERAL: He is currently alert, oriented. VITAL SIGNS: Stable, currently afebrile. HEENT: He is not icteric. NECK: Supple. CHEST: Clear. HEART: S1-S2. No murmur. ABDOMEN: Soft. Bowel sounds present. No tenderness. EXTREMITIES: No edema. SKIN: No rash. IMPRESSION AND PLAN: 1. Coronavirus disease-19 viral pneumonia. 2. Diabetes. 3. Hypertension. 4. Stable from Infectious Disease point of view, can be discharged home with albuterol and prednisone. Follow up as an outpatient in 2 weeks. Home quarantine for 2 weeks. MD ERWIN Banegas/[facility] /[id number]
[2020-03-02] MEDS: ENOXAPARIN SOD INJ 40 MG/0.4 ML SYR SC SCH (17:00)
--- NOTE | 2020-03-02 17:47 | NUR ---
patient unable to get to answer phone to come pick him up. she is not answering my calls either. [email or web address].
--- NOTE | 2020-03-02 18:25 | Progress Note ---
DATE: SUBJECTIVE: The patient is still on nasal cannula. He feels better. He is not complaining of nausea, vomiting. PHYSICAL EXAMINATION: VITAL SIGNS: The patient is afebrile. The blood pressure is 115/72, saturation is 91% on room air. The pulse is 75. CARDIAC: Reveals a regular rate and rhythm with normal S1 and S2. There are no murmurs or rubs heard. LUNGS: Auscultation of lungs reveals clear decreased breath sounds at the bases. There is no wheezing. ABDOMEN: Soft, nontender. There is no rebound or guarding. EXTREMITIES: Shows no leg edema or calf tenderness. LABORATORY DATA: Potassium is 3.2. The BUN to creatinine ratio is normal. AST is 42 and the albumin is 2.1. White blood cell count is 8 and hemoglobin is 13.4. The platelet count is 295. The chest x-ray shows bilateral infiltrates. IMPRESSION: 1. Viral pneumonia and coronavirus disease 2019 infection. 2. Viral gastroenteritis. 3. Diabetes. PLAN: 1. The patient is scheduled for discharge today. 2. Consider temporary home oxygen. 3. Complete antibiotics. 4. Steroids at home with close monitoring of blood sugars. Cliff Reis MD [facility] /[id number]
--- NOTE | 2020-03-02 18:40 | NUR ---
patient's still not answering from patient's room phone or nurses line. unable to leave voicemail due to no mailbox. ALYSSA Sanders, made aware that no safe discharge is in place since patient does not have wallet, keys, or phone with him. Management aware as well and case management all working to get in touch with family member for patient.
[2020-03-02 20:00] VITALS: BP 128/87
--- NOTE | 2020-03-02 20:26 | NUR ---
Recieved pt this evening in bed asleep, easily aroused. Pt denies discomfort, no s/sx of distress noted. Pt witing for spouse to pick up driver as he has been discharged. Will cont to mon pt.
[2020-03-02 20:30] VITALS: BP 128/87
--- NOTE | 2020-03-02 21:24 | NUR ---
Spoke with house supv regarding pt discharge. Informed pt he would stay overnight and discharge transport will be discussed in am. Pt with no request at this time. No s/sx of distress, denies discomfort. Will cont to mon
--- NOTE | 2020-03-02 21:45 | Discharge Summary ---
ADMISSION DIAGNOSES: Coronavirus disease 2019 pneumonia, present on admission; type 2 diabetes; hypokalemia; dehydration; hyponatremia; transaminitis. DISCHARGE DIAGNOSES: Coronavirus disease 2019 pneumonia, present on admission; type 2 diabetes; hypokalemia; dehydration; hyponatremia; transaminitis. HISTORY: Type 2 diabetes. SURGICAL HISTORY: None. FAMILY HISTORY: None. SOCIAL HISTORY: Noncontributory. HOSPITAL COURSE: A 59-year-old male, who has been ill for the last 3 days. He came to the ER with complaints of fever, shortness of breath, productive cough, dyspnea, poor appetite. He was tested for COVID, which came back positive. On admission, Pulmonology and ID were consulted. The patient was started on Zithromax, Rocephin, and Lovenox. The patient was very noncompliant with oxygen use, but rarely needed to use oxygen anyways. Chest x-ray showed apparent airspace opacities in both lower lung zones, which may represent pneumonia. Coronavirus PCR was positive. Blood culture negative. Urine culture negative. The patient's SpO2 remains in the 90s on room air. He will discharge home with new prescriptions for zinc, guaifenesin with codeine, ascorbic acid, albuterol inhaler, and prednisone per ID recommendation. The patient understands discharge instructions and agrees to plan. Vital signs stable. The patient is afebrile. He will follow up with primary care in 1 to [address] Carrillo as discussed. Dictated by Marilyn Hunt NP MD FRANSISCO Gusman/[facility] /[id number]
[2020-03-03 04:00] VITALS: BP 107/75
[2020-03-03] MEDS: FAMOTIDINE 20 MG/2 ML VIAL IV SCH (07:14)
[2020-03-03 08:00] VITALS: BP 126/86
[2020-03-03 08:42] VITALS: BP 126/86
[2020-03-03] MEDS: METFORMIN HCL 500 MG TAB PO SCH (08:42)
[2020-03-03] MEDS: ZINC SULFATE 220 MG CAP PO SCH (08:42)
[2020-03-03] MEDS: ASCORBIC ACID 500 MG TAB PO SCH (08:42)
--- NOTE | 2020-03-03 10:19 | NUR ---
Patient discharged per orders from . Patient discharge paperwork all in hand. Patient discharged with EMS to bring him to his home. Patient IV dced yesterday. No tele on. No pain. No questions or complaints. Bought to EMS ambulance with hospital housekeeper.
== END 2020-03-03 10:22 | disposition home or self-care (01) | DRG 177 ==
LOC: ER 09:25 → ERHOLD 11:16 → IMCU 15:39
PROVIDERS: ADMIT Internal Medicine; ATTEND Internal Medicine
DX: U07.1 COVID-19 (principal); J12.9 Viral pneumonia, unspecified; E87.1 Hypo-osmolality and hyponatremia; E87.6 Hypokalemia; E11.9 Type 2 diabetes mellitus without complications; E86.0 Dehydration; R74.0 Nonspecific elevation of levels of transaminase and lactic acid dehydrogenase [LDH]; E83.42 Hypomagnesemia; A08.4 Viral intestinal infection, unspecified
CPT/HCPCS: 36415; 71045; 80053; 81001; 82550; 82553; 82948; 83036; 83605; 83735; 84100; 84443; 84484; 85025; 87040; 87086; 87635; 93005; 99285; J0456; J0696; J1650; J3475; J7030